=== PATIENT | male | born 1995 | race Caucasian/White ===

== ENCOUNTER 2021-03-11 06:40 | Emergency (ER) | payer OTHER, SELFPAY ==
[2021-03-11 06:41] VITALS: BP 146/95; PULSE 53; RESP 22; TEMP 36.2; O2SAT 99; BMI 31.1
[2021-03-11 06:45] VITALS: BP 140/86; PULSE 53; RESP 22; TEMP 36.2; O2SAT 99
[2021-03-11 06:46] VITALS: BP 140/86
--- NOTE | 2021-03-11 06:58 | US_ITS ---
INDICATION: PAIN EXAMINATION: Ultrasound US Abdomen RUQ (limited) TECHNIQUE: Smith scale and color doppler imaging was performed of the right upper quadrant. COMPARISON: CT of the abdomen and pelvis dated 02/15/2015 FINDINGS: LIVER: Mild increased signal throughout the liver may represent hepatic steatosis versus other hepatic infiltrative process. No focal hepatic lesion. There is no free fluid. GALLBLADDER AND BILIARY TREE: Multiple echogenic stones are noted layering in the gallbladder. However there is no evidence of gallbladder wall thickening or pericholecystic fluid. The proximal common bile duct measures 5 mm, which is within normal limits for the patient''s age. Songraphic Manzanares''s sign: Negative per the press cleaner. PANCREAS: Limited evaluation of the pancreas secondary to shadowing from bowel gas. RIGHT KIDNEY: The right kidney is normal in size and morphology. No focal renal mass is seen. No nephrolithiasis or hydronephrosis is noted. The right kidney measures 11.2 x 5.6 x 4.9 cm. US/Gallbladder IMPRESSION: 1. Sonographic evidence of cholelithiasis, without findings of acute cholecystitis or choledocholithiasis. 2. Mild increased echogenicity of the liver which may represent hepatic steatosis versus other hepatic infiltrative process. 3. Limited evaluation of the pancreas. Electronically Signed: Michelet Rasheed MD at 8:58 EDT Tel , Service support ,
--- NOTE | 2021-03-11 07:00 | EX.ED.DYSGE1 ---
HPI History of Present Illness Chief Complaint: Abd Pain Narrative Narrative: 26-year-old male presents with concern for upper epigastric pain that began approximately 4 hours ago and is worsened since that time. Nausea with induced vomiting. Describes the pain is sharp. States it is happened multiple times in the past after big meals. States that he had steak and potatoes as well as a cheese plate last night. Denies any alcohol. Denies any fever, chills, cough, chest pain, shortness of breath, urinary symptoms. PFSH PFS Medical History (Updated 03/11/21 @ 09:[address] Estrada Whitney, ) Biliary colic Hx of testicular cancer Home Medications ondansetron 4 mg PO Q8H PRN PRN #10 tab 03/11/21 [Rx Last Taken Unknown] oxycodone-acetaminophen [Percocet] 1 tab PO Q8H PRN 3 Days #9 tab 03/11/21 [Rx Last Taken Unknown] Allergy/AdvReac Type Severity Reaction Status Date / Time No Known Allergies Allergy Verified 03/11/21 06:45 Social History Smoking Status: Never smoker ROS ROS ED Constitutional Constitutional ED: Denies chills, fever(s) or sweats Eyes Eyes: Denies blurry vision, change in vision or diplopia ENT ENT ED: Denies rhinorrhea or sore throat Cardiovascular Cardiovascular: Denies chest pain, orthopnea, palpitations or racing heartbeat Respiratory/Chest Respiratory/Chest: Denies cough, dyspnea, dyspnea on exertion, orthopnea or sputum Gastrointestinal Gastrointestinal: Reports abdominal pain and nausea; Denies constipation, diarrhea, melena or vomiting Genitourinary Genitourinary ED: Denies dysuria, hematuria or urinary frequency Musculoskeletal Musculoskeletal: Denies arthralgias, myalgias or neck pain Integumentary Denies rash Neurologic Neurologic: Denies headache(s), paresthesias or weakness Psychiatric Psychiatric: Denies anxiety or depression Hematologic/Lymphatic Hematologic/Lymphatic: Denies easy bleeding or easy bruising Allergic/Immunologic Allergic/Immunologic ED: Denies mouth swelling or tongue swelling EXAM Physical Exam Const Vital Signs: 03/11/21 06:41 03/11/21 06:45 03/11/21 06:46 Temperature 97.1 F L 97.1 F L Temperature Source Oral Oral Pulse Rate 53 L 53 L Respiratory Rate 22 H 22 H Blood Pressure 146/95 H 140/86 H 140/86 H Blood Pressure Mean 112 104 104 Pulse Ox 99 99 Oxygen Delivery Method Room Air Room Air 03/11/21 07:16 Temperature Temperature Source Pulse Rate 77 Respiratory Rate 97 H Blood Pressure 129/76 H Blood Pressure Mean 93 Pulse Ox Oxygen Delivery Method Room Air Positive well nourished and well developed General Appearance ED: well developed HEENT Reports TM's clear and moist mucous membranes normocephalic and atraumatic Tympanic Membrane ED: Yes TM's clear Eyes PERRL and EOMs intact bilaterally Neck no lymphadenopathy, supple and no JVD Chest Wall inspection of chest normal Resp normal respiratory effort and clear to auscultation bilaterally Cardio regular rate, S1 normal heart sound, S2 normal heart sound and no murmurs Peripheral Pulses: pulses 2+ throughout GI soft to palpation and non-distended GI Narrative: Tenderness to palpation in the midepigastrium and right upper quadrant. Back/Spine no CVA tenderness and no thoracic nor lumbar tenderness Extremity normal to inspection General Extremety ED: Negative for edema or tenderness General Extremity: Negative for edema Neuro oriented x3, CN's II-XII intact bilaterally and no sensory deficits noted Sensorium / Orientation: alert Motor Exam: strength 5/5 throughout Psych mental status grossly normal Skin no rashes or lesions noted MDM MDM MDM Narrative Medical decision making narrative: Patient appears well and nontoxic. Vital signs show mild tachypnea but otherwise within normal limits. Afebrile. No leukocytosis. No elevation of liver enzymes or bilirubin. Ultrasound shows cholelithiasis without cholecystitis. Normal common bile duct. Patient treated with morphine and Zofran and fluid which controlled his pain. Patient be given another dose of pain medicine before his discharge. Given Percocet and Zofran for home. Will be asked to follow-up with general surgeon on-call Dr. Villalta. Advised to refrain from fatty foods. Stable at time of discharge. Lab Data Attestation: I reviewed the patient's lab results. Labs: Laboratory Results - last 24 hr 03/11/21 03/11/21 06:50 06:50 WBC 9.8 RBC 5.39 Hgb 15.1 Hct 45.4 MCV 84.2 MCH 28.0 MCHC 33.3 RDW Std Deviation 39.3 RDW Coeff of Miranda 12.8 Plt Count 342 MPV 8.6 Immature Gran % (Auto) 0.300 Neut % (Auto) 78.5 H Lymph % (Auto) 12.9 L Berrien % (Auto) 6.6 Eos % (Auto) 1.4 Baso % (Auto) 0.3 Absolute Neuts (auto) 7.7 Absolute Lymphs (auto) 1.27 Nucleated RBC % 0 Sodium 140 Potassium 3.5 Chloride 104 Carbon Dioxide 27.0 Anion Gap 9 BUN 16 Creatinine 1.11 Estim Creat Clear Calc 93.46 Est GFR (MDRD) Af Amer 102 Est GFR (MDRD) Non-Af 85 BUN/Creatinine Ratio 14.4 Glucose 154 H Calcium 9.4 Total Bilirubin 0.40 AST 25 ALT 46 Alkaline Phosphatase 25 L Total Protein 7.9 Albumin 4.8 Globulin 3.1 Albumin/Globulin Ratio 1.5 Lipase 76 Radiography Diagnostic Testing: Radiology Impression Gallbladder Ultrasound 03/11/21 06:58 IMPRESSION: 1. Sonographic evidence of cholelithiasis, without findings of acute cholecystitis or choledocholithiasis. 2. Mild increased echogenicity of the liver which may represent hepatic steatosis versus other hepatic infiltrative process. 3. Limited evaluation of the pancreas. Electronically Signed: Michelet Rasheed MD at 8:58 EDT Tel , Service support , Discharge Plan Triage Chief Complaint: Abd Pain ED Provider: Estrada Whitney Dx/Rx/DC Orders Clinical Impression: Biliary colic, Cholelithiasis Instructions: ED Gallstones with Biliary Colic Prescriptions: New oxycodone-acetaminophen [Percocet] 5-325 mg tablet 1 tab PO Q8H PRN (Reason: pain) 3 Days Qty: 9 RF: 0 ondansetron 4 mg tablet,disintegrating 4 mg PO Q8H PRN PRN (Reason: Nausea) Qty: 10 RF: 0 Primary Care Provider: Osvaldo Gilliland Referrals: Marito Villalta MD [STAFF PHYSICIAN] - As soon as possible Osvaldo Gilliland MD [Primary Care Provider] - 2 Days Disposition Disposition: Home, Self Care
[2021-03-11 07:07] LABS: Absolute Lymphocyte Count 1.27 X10^3/uL (0.83-4.51); Absolute Neutrophil Count 7.7 X10^3/uL (2.0-7.7); Basophil# 0.03 X10^3/uL; Basophil% 0.3 % (0-1); Eosinophil# 0.14 X10^3/uL; Eosinophils% 1.4 % (0-5); Hematocrit 45.4 % (40-54); Hemoglobin 15.1 g/dL (13.0-16.5); Lymphocyte # 1.27 X10^3/ul (0.83-4.51); Lymphocyte % 12.9 % (19-41); Mean Corp Hgb Conc 33.3 g/dL (32-36); Mean Corpuscular Volume 84.2 fL (80-94); Mean Platelet Vol. 8.6 fl (6.2-12.0); Monocyte# 0.65 X10^3/uL; Monocyte% 6.6 % (0-10); NRBC Flagged by Analyzer 0 % (0-5); Neutrophil # 7.69 X10^3/uL (2.7-7.7); Neutrophil % 78.5 % (47-70); Platelet Count 342 K/mm3 (150-450); RBC Distribution Width CV 12.8 % (11.6-14.6); RBC Distribution Width SD 39.3 fl (35.1-43.9); Red Blood Count 5.39 M/mm3 (4.6-6.2); White Blood Count 9.8 K/mm3 (4.4-11.0)
[2021-03-11] MEDS: 0.9% Normal Saline 1,000 ML 1000 ML IV (07:13)
[2021-03-11] MEDS: Ondansetron 4 MG/2 ML Vial IV (07:13)
[2021-03-11] MEDS: Morphine 4 MG/ML Syringe IV (07:15)
[2021-03-11 07:16] VITALS: BP 129/76; PULSE 77; RESP 97
[2021-03-11 07:22] LABS: ALB/GLOB Ratio 1.5 RATIO (0.9-2.4); AST(SGOT) 25 U/L (15-37); Alanine Aminotransfer ALT/SGPT 46 U/L (16-61); Albumin, Serum 4.8 g/dL (3.2-5.0); Alkaline Phosphatase 25 U/L (45-117); Anion Gap 9 (5-15); BUN 16 mg/dL (7-18); BUN/Creat Ratio 14.4 RATIO (10-20); Calcium,Total 9.4 mg/dL (8.5-10.1); Chloride 104 mmol/L (98-107); Creatinine, Serum 1.11 mg/dL (0.70-1.30); EST Glomerular Filtration Rate 85 mL/min (>60); Est Glom Filt Rate - Afr Amer 102 mL/min (>60); Estimated Creatinine Clearance 93.46 ml/min; Globulin 3.1 g/dL (2.2-4.2); Glucose 154 mg/dL (74-106); Lipase 76 U/L (73-393); Potassium 3.5 mmol/L (3.5-5.1); Protein, Total 7.9 g/dL (6.4-8.2); Sodium Level 140 mmol/L (136-145)
[2021-03-11] MEDS: HYDROmorphone 0.5 MG/0.5 ML SYRINGE IV (10:13)
[2021-03-11 10:35] VITALS: BP 130/78; PULSE 73; RESP 17; O2SAT 98
== END 2021-03-11 10:37 | disposition home or self-care (01) ==
PROVIDERS: Emergency Provider Emergency Medicine; PCP Family Medicine
DX: K80.70 Calculus of gallbladder and bile duct without cholecystitis without obstruction (principal); Z85.47 Personal history of malignant neoplasm of testis
CPT/HCPCS: 76705; 80053; 83690; 85025; 96361; 96374; 96375; 99283; J7030; A4216; J2405

== ENCOUNTER 2021-08-28 10:14 | Day surgery (SDC) | payer OTHER, SELFPAY ==
[2021-08-28] VITALS (7 sets, daily range): BP systolic 117–140; BP diastolic 86–98; PULSE 70–97; RESP 16–18; TEMP 36.2–36.9; O2SAT 94–100; BMI 30.5
--- NOTE | 2021-08-28 | GALL_PTH ---
PATIENT: ALEJANDRA BARAHONA LOC: [facility] U#:[id number] AGE/SX: 26/M ROOM: RE08/28/[address]: Dr. Shane Diggs MD : 1995 BED: DIS: 08/28/2021 SPEC #: [id number] RECD: 08/28/21 13:57 STATUS: ALEXX REGlynn #: [id number] WILNER: 08/28/21 00:[address]: Shane Diggs DEPT: SURGICAL PATHOLOGY RECD BY: Royal Bee ENTERED: 08/28/21 13:57 SP TYPE: GUIDO FLORES DR: Dr. Osvaldo Gilliland MD Tissues: Gallbladder, NOS Procedures: Surgery Specimen Level III HEADER OPERATION: Laparoscopic cholecystectomy with IOC PRE-OP DIAGNOSIS: Cholelithiasis, chronic cholecystitis TISSUE SUBMITTED: Gallbladder MICROSCOPIC DIAGNOSIS Gallbladder, cholecystectomy: Chronic cholecystitis and cholelithiasis. AM:otis 08/29/2021 MICROSCOPIC DESCRIPTION Slides are reviewed. GROSS DESCRIPTION Received is one container labeled with the patient's name and designated gallbladder. The specimen consists of a gallbladder measuring 8 x 3 x 2.6 cm. The external surface is smooth and glistening. Focally, it is granular, hemorrhagic and contains cautery artifact. The lumen of the gallbladder contains yellow-green mucoid bile and multiple dark green-black calculi ranging in size from 0.1 to 1.3 cm in greatest dimension. The mucosa is bile-stained and without any mass lesions. The gallbladder wall averages 0.3 cm in thickness and is free of mass lesions. Bobbin Dumper sections of the gallbladder and the cystic duct at margin of resection are submitted in one cassette. / AM:otis 08/28/21 TC:3 CPT: 64477
--- NOTE | 2021-08-28 10:29 | PCM.HP.BLA ---
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 Shane Diggs MD) Biliary colic Hx of testicular cancer Surgical History (Updated 08/22/21 @ 14:32 by Jaelyn Saturday) History of orchiectomy, unilateral Social History (Updated 08/22/21 @ 14:33 by Jaelyn Saturday) Smoking Status: Never smoker alcohol intake: never substance use type: does not use HPI HPI HPI: ALEJANDRA BARAHONA, is a 26 M who presents to the office today for epigastric pain. Patient reports that he has had episodes of epigastric pain in the past following dairy and was going to have his gallbladder removed and then decided against it and these attacks have become more persistent and longer and more frequent over the last 3 weeks. Patient reports the pain radiates to his back. ROS General General: No weight change, appetite, fatigue, colon cancer, breast cancer or weakness HEENT HEENT: No difficulty swallowing, eye injury, eye surgery, swollen glands or hoarseness Endo Endocrine: No thyroid disease, diabetes mellitus, thyroid cancer, Hair loss, heat intolerance or cold intolerance Skin Skin: No rash or changing moles Musc Musculoskeletal: No back problems, arthritis, rheumatoid arthritis, gout or joint pain Cardio Cardiovascular: No murmur, pacemaker, heart disease, atrial fibrillation, high blood pressure, heart attack, heart stent, palpitations, shortness of breat with exertion or chest pain Psych Psychiatric: No depression, anxiety or hearing voices Resp Respiratory: No shortness of breath, No sleep apnea, No cough, No COPD, No asthma, No emphysema and No wheezing Gastro Gastrointestinal: No abdominal pain, No nausea or vomiting, No diarrhea, No constipation, No blood in stool, No acid reflux, No hemorrhoids, No ulcers, Yes gallbladder problem and No black,tarry stools Slava Hematologic: No blood thinners, No blood disorders, No bleeding, No anemia and No blood clots Neuro Neurologic: No system reviewed and no additional complaints, except as documented, No as per HPI, No abnormal gait, No abnormal hearing, No abnormal movements, No abnormal speech, No behavioral changes, No burning sensations, No confusion, No convulsions, No disequilibrium, No dizziness, No localized weakness, No frequent falls, No headache(s), No lack of coordination, No loss of vision, No memory loss, No numbness, No other visual disturbances, No radicular pain, No restless legs, No sensory deficit, No syncope, No tingling, No tremor(s), No weakness and No other Exam Const General: cooperative Orientation: alert and oriented x3 HENMT Head: normal to inspection Neck Neck: normal visual inspection and full ROM Chest Chest palpation & inspection: normal inspection of the chest Resp Effort & Inspection: normal respiratory effort Auscultation: clear to auscultation bilaterally Cardio Rate: regular rate Rhythm: regular rhythm GI Inspection: non-distended Palpation: soft and nontender Skin General: no rashes or lesions noted Neuro General: patient alert and patient oriented x3 Extrem General: full ROM Psych Appearance: grossly normal Mental Status: mental status grossly normal Assessment and Plan Assessment and Plan (1) Cholelithiasis: Status: Acute Qualifiers: Cholelithiasis location: gallbladder Cholecystitis presence: without cholecystitis Biliary obstruction: without biliary obstruction Qualified Code(s): K80.20 - Calculus of gallbladder without cholecystitis without obstruction Plan - Dr. Shane Diggs MD: The patient has cholelithiasis on ultrasound no signs of acute cholecystitis. The pains are colicky in nature and may be due to cholelithiasis. His symptoms are not in the typical location or following meals like typical biliary colic so I did warn him that there was a possibility of removing the gallbladder and him still having these attacks although it is likely due to biliary colic and cholelithiasis. I did offer the patient laparoscopic cholecystectomy and the patient did want to proceed. I discussed the procedure in detail with the patient. I discussed the risks, benefits, and alternatives of the procedure. I discussed the risks including but not limited to bleeding, infection, injury to surrounding organs such as the liver, bile duct, bowels. I did discuss the possibility of having to convert to an open procedure as well as the possibility that if any injuries occurred this may necessitate further surgery at a tertiary care center. Shane Diggs MD Pager: [facility] [address] [place] [address] [address] [place] [address] Office: I have re-examined the patient. There are no clinical changes since date of exam.
--- NOTE | 2021-08-28 10:44 | EKG12_ITS ---
Test Reason : PREOP Blood Pressure : / mmHG Vent. Rate : 087 BPM Atrial Rate : 087 BPM P-R Int : 138 ms QRS Dur : 090 ms QT Int : 356 ms P-R-T Axes : 062 068 039 degrees QTc Int : 428 ms Normal sinus rhythm Normal ECG No previous ECGs available Confirmed by JAVIER GRIMES, VANNESA ([id number]), editor index IDALIA WOODWARD ([id number]) on 08/30/2021 2:02:59 PM Referred By: Shane Diggs Confirmed By:VANNESA HERRERA MD
[2021-08-28] MEDS: Lactated Ringers 1,000 ML 15 ML IV (11:05)
[2021-08-28] MEDS: Cefotetan 2 GM in 0.9% NS 100 ML IV (11:10)
--- NOTE | 2021-08-28 11:30 | RAD_ITS ---
STUDY: INTRAOPERATIVE CHOLANGIOGRAM. REASON FOR EXAM: Male, 26 years old. Laparoscopic cholecystectomy. FLUOROSCOPY TIME (if supplied): ( 11 seconds ) minutes/seconds. A cine loop of 67 images were submitted. TECHNIQUE: An intraoperative cholangiogram was performed by the surgeon. Imaging was submitted. COMPARISON: None. FINDINGS: The visualized intrahepatic and extrahepatic biliary ducts are unremarkable. No intraluminal filling defect is seen. There is free flow of contrast into the duodenum. RAD/Cholangiogram/ O R,Initial IMPRESSION: Unremarkable intraoperative cholangiogram. Electronically Signed: Gareth Carlos MD at 15:37 EST , Service support ,
[2021-08-28] MEDS: Lactated Ringers 1,000 ML 100 ML IV (12:01)
[2021-08-28] MEDS: Bupivacaine 0.25% 30 ML Vial (12:16)
--- NOTE | 2021-08-28 12:39 | PCM.OPRPT ---
Problems Associated Problem List Diagnoses (1) Cholelithiasis: Report of Operation Date of Procedure: 08/28/21 Pre-Operative Diagnosis: Cholelithiasis Post-Operative Diagnosis: Cholelithiasis with chronic cholecystitis Surgery/Procedure Performed:: Laparoscopic cholecystectomy with cholangiogram Specimen's removed: Gallbladder Estimated Blood Loss (mL): 50 Description of Procedure: After obtaining informed consent patient was brought back to the operating room. General anesthesia was induced. The abdomen was prepped and draped in usual sterile fashion. A small midline incision was made superior to the umbilicus and deepened to the level of fascia. The fascia was elevated and incised. Next the peritoneum was elevated and incised in the same fashion. Finger sweep was performed and the Reyes trocar was placed into the abdomen. The balloon was inflated. The abdomen was inflated to 15 mmHg. Next a camera was introduced into the abdomen and the abdomen was inspected. Next under direct visualization three 5-mm ports were placed one subxiphoid and 2 subcostal. Next the gallbladder was elevated and retracted toward the right shoulder. The peritoneum was stripped from the gallbladder. The infundibulum was located and retracted laterally. Next the triangle of Calot was dissected and the cystic duct and cystic artery were identified. Cholangiograms were performed. The Lentz clamp was used to clamp across the infundibulum and the catheter needle was inserted into the gallbladder. Under fluoroscopy contrast was instilled into the gallbladder and the common duct, cystic duct as well as proximal hepatic ducts were identified. There was good filling of the duodenum. There were no filling defects noted in the common bile duct. The clamp was removed as well as the needle and the infundibulum was grasped once more. Three hemolock clips were placed across the cystic duct. The cystic duct was then divided leaving 2 clips on the stump. The cystic artery was clipped and divided in the same fashion. The hook cautery was then used to take the gallbladder off of the gallbladder bed. The gallbladder was tightly adherent and inflamed to the liver. Hemostasis was obtained using electrocautery in the gallbladder fossa. Gallbladder fossa was irrigated and no active bleeding or bile leakage was noted. Next the camera was introduced in the subxiphoid port. An Endopouch bag was placed through the umbilical port and the gallbladder was placed into it. The gallbladder was then removed through the umbilical incision. The camera was then reinserted through the umbilical port. The gallbladder fossa was inspected once more and noted to be hemostatic with no leaking bile. The abdomen was suctioned dry. The 5 mm ports were removed under direct visualization. The umbilical port was then removed and the air was removed from the abdomen. Next using an 0 Vicryl suture the umbilical fascia was closed in a [id number] fashion. The umbilical port site was irrigated local anesthetic was administered to all the incisions. All the incisions were closed with interrupted subcuticular 4-0 Monocryl sutures followed by Steri-Strips and dressings. The patient was awoken and taken to PACU in stable condition. Admit VTE Documentation VTE Mechan Device Prophylaxis: SCD's
--- NOTE | 2021-08-28 12:40 | EX.PCM.DISCH ---
Discharge Instructions Procedure Gallbladder Diet Discharge Diet: Light diet - advance as tolerated Activity Discharge Activity: May Not Drive (for 2-3 days or while taking narcotic pain medications.) and - (Do not drive, work heavy equipment or sign legal documents for 24 hours.) May shower in (days): 1 Lifting Restrictions: 20 lbs for 2 weeks Additional Activity Instructions:: Pain medication may cause nausea. You should typically eat light foods as you take your pain medications. Pain medication may also cause constipation. If this is a problem for you, please discuss with your doctor. Dressing / Incision Call your doctor if your incision/area has: Continuous Slow Oozing, Sudden Increased Bleeding, Increased Pain/ Swelling, Increased Redness and Foul Smelling Discharge Call your doctor if you observe: Fever of 101 or Higher Suture Line Care: Avoid Pulling/Pushing and Avoid Pinching/Bending Remove Dressing in: 2 days Additional Dressing/Incision Instructions:: Leave operative bandaids on for 2 days. When you remove dressing, leave Steri-Strips on until your follow-up appointment, or until the Steri-Strips fall off on their own. Follow Up Care Please Follow Up With: Shane Diggs MD When: Please call to schedule 2 week follow up appointment. [phone] Test Results: Test results from this visit will be discussed in further detail at your follow-up appointment, if applicable. Discharge Plan Admission Attending Provider: Shane Diggs Primary Care Provider: Osvaldo Gilliland Discharge Orders/Prescriptions Prescriptions: New oxycodone-acetaminophen [Percocet] 5-325 mg tablet 1 tab PO Q4H PRN (Reason: pain) 5 Days Qty: 30 RF: 0 No Action oxycodone-acetaminophen [Percocet] 5-325 mg tablet 1 tab PO Q8H PRN (Reason: pain) 3 Days Qty: 9 RF: 0 ondansetron 4 mg tablet,disintegrating 4 mg PO Q8H PRN PRN (Reason: Nausea) Qty: 10 RF: 0 Referrals / Follow Up: Osvaldo Gilliland MD [Primary Care Provider] - Disposition Disposition (needs filled in before D/C Order can be placed): Home, Self Care
== END 2021-08-28 15:56 | disposition home or self-care (01) ==
LOC: SDC 10:21 → AC 10:22
PROVIDERS: PCP Family Medicine; Referring Provider Surgery; Visit Provider Surgery
PROC: (CPT 47610; principal; 2021-08-28 11:20)
DX: K80.10 Calculus of gallbladder with chronic cholecystitis without obstruction (principal)
CPT/HCPCS: 00790; 47563; 74300; 76000; 87426; 88304; 93005; J7120; J2405